=== PATIENT | female | born 1985 | race Two or more races ===

== ENCOUNTER 2017-05-30 15:16 | Emergency (ER) | payer MEDICAID ==
[~2017-05-30] VITALS: Ht 165.1 cm; Wt 114.8 kg
[~2017-05-30 15:16] MED LIST: GABA100C9 PO; LOSA50TA6 PO
[2017-05-30 15:22] VITALS: BP 137/90
[2017-05-30 16:03] LABS: Basophils # (auto) 0.1 uL; Eosinophils # (auto) 0 uL; Eosinophils % (auto) 0.2 % (0.0-7.0); Hematocrit 48.5 % (36.0-46.0); Hemoglobin 16.8 g/dL (12.2-16.2); Lymphocytes # (auto) 0.8 uL; Lymphocytes % (auto) 14.4 % (10.0-50.0); Mean Corpuscular Hemoglobin 31.4 pg (28.0-32.0); Mean Corpuscular Hgb Conc. 34.6 g/dL (32.0-36.0); Mean Corpuscular Volume 90.9 fL (80.0-100.0); Monocytes # (auto) 0.6 uL; Monocytes % (auto) 11.6 % (0.0-12.0); Neutrophils % (auto) 72.8 % (37.0-80.0); Nucleated Red Blood Cells % 0.1 %; Platelet Count (auto) 237 10^3/uL (140-450); Red Blood Cells 5.34 10^6/uL (4.0-5.20); Red Cell Distribution Width 14.6 % (11.8-14.3); White Blood Cell 5.5 10^3/uL (4.4-10.8)
[2017-05-30 16:21] LABS: Alanine Aminotransferase 63 U/L (13-56); Albumin 4.4 g/dL (3.4-5.0); Alkaline Phosphatase 76 U/L (45-117); Anion Gap 9 (5-15); Aspartate Aminotransferase 31 U/L (15-37); BUN/Creatinine Ratio 7.5; Bilirubin, Total 0.5 mg/dL (0.2-1.0); Blood Urea Nitrogen 8 mg/dL (7-18); Calcium 8.9 mg/dL (8.5-10.1); Carbon Dioxide 23 mmol/L (21-32); Chloride 103 mmol/L (98-107); GFR African American 76 mL/min; GFR Non-African American 63 mL/min; Glucose 96 mg/dL (74-106); Potassium 3.1 mmol/L (3.5-5.1); Sodium 135 mmol/L (136-145); Total Protein 9.3 g/dL (6.4-8.2)
== END 2017-05-30 23:10 | disposition left against medical advice (07) ==
LOC: EDBD 15:16 → ER 15:16
DX: R53.1 Weakness (principal); Z53.21 Procedure and treatment not carried out due to patient leaving prior to being seen by health care provider
CPT/HCPCS: 36415; 80053; 84484; 84702; 85025